=== PATIENT | female | born 1985 | race African-American/Black ===

== ENCOUNTER 2017-05-19 20:40 | Emergency (ER) | payer OTHER, SELFPAY ==
[2017-05-19] MEDS ORDERED: Ibuprofen 200 MG TAB ONE (20:46)
== END 2017-05-19 21:30 | disposition home or self-care (01) ==
LOC: SCSER 20:40
DX: J98.8 Other specified respiratory disorders (principal); B34.9 Viral infection, unspecified
CPT/HCPCS: 99283